=== PATIENT | female | born 1970 | race Caucasian/White ===

== ENCOUNTER → 2016-09-19 | Outpatient (CLI) | payer MEDICARE, MEDICAID | LOC: M LAB 10:37 | PROVIDERS: ATTEND Nurse Practitioner Family | DX: C95.91 Leukemia, unspecified, in remission (principal); F41.8 Other specified anxiety disorders; Z13.89 Encounter for screening for other disorder ==

== ENCOUNTER → 2016-10-11 | Outpatient (REF) | payer MEDICARE, MEDICAID | LOC: M LAB REF 17:25 | PROVIDERS: ATTEND Nurse Practitioner Family | DX: Z12.4 Encounter for screening for malignant neoplasm of cervix (principal); N89.8 Other specified noninflammatory disorders of vagina | CPT/HCPCS: 87491; 87591; G0123 ==

== ENCOUNTER → 2017-06-30 | Outpatient (REF) | payer MEDICARE, MEDICAID ==
[2017-06-30 20:38] LABS: ESTIMATED AVERAGE GLUCOSE 108 MG/DL (60-110); HEMOGLOBIN A1c 5.4 %
[2017-06-30 21:10] LABS: CHOLESTEROL LEVEL 210 MG/DL (<200); CHOLESTEROL RISK RATIO 2.957 (<5); HDL CHOLESTEROL 71 MG/DL (>40); NON-HDL-C 139 MG/DL; TRIGLYCERIDES LEVEL 175 MG/DL (<150)
[2017-07-03 12:12] LABS: HIV 1&2 SCREEN CENTAUR NEGATIVE (NEGATIVE)
[2017-07-03 12:12] LABS: HEPATITIS C VIRUS ABY INDEX 0.1 INDEX (<0.8)
== END ==
LOC: M SFHCPLAZ 15:04
DX: Z11.3 Encounter for screening for infections with a predominantly sexual mode of transmission (principal); Z13.1 Encounter for screening for diabetes mellitus; Z13.220 Encounter for screening for lipoid disorders; F17.200 Nicotine dependence, unspecified, uncomplicated; J01.01 Acute recurrent maxillary sinusitis; M54.5 Low back pain; G89.29 Other chronic pain; Z23 Encounter for immunization; Z79.899 Other long term (current) drug therapy
CPT/HCPCS: 83036

== ENCOUNTER 2017-10-26 13:20 | Emergency (ER) | payer MEDICARE, MEDICAID ==
[2017-10-26] MEDS: ACETAMINOPHEN 325 MG TAB PO (17:15)
== END 2017-10-26 18:11 | disposition home or self-care (01) ==
LOC: M ED 13:20
DX: S00.93XA Contusion of unspecified part of head, initial encounter (principal); T20.05XA Burn of unspecified degree of scalp [any part], initial encounter; X97.XXXA Assault by smoke, fire and flames, initial encounter; W19.XXXA Unspecified fall, initial encounter; Y92.480 Sidewalk as the place of occurrence of the external cause; Y93.9 Activity, unspecified; Y99.9 Unspecified external cause status; F17.200 Nicotine dependence, unspecified, uncomplicated
CPT/HCPCS: 70450

== ENCOUNTER 2018-04-04 17:06 | Emergency (ER) | payer MEDICARE, MEDICAID | END 2018-04-04 18:22 | disposition left against medical advice (07) | LOC: M ED 17:06 | DX: F10.129 Alcohol abuse with intoxication, unspecified (principal); Z53.21 Procedure and treatment not carried out due to patient leaving prior to being seen by health care provider ==

== ENCOUNTER 2022-02-11 20:43 | Emergency (ER) | payer MEDICARE, MEDICAID ==
[~2022-02-11] VITALS: Ht 157.5 cm; Wt 55.9 kg
[~2022-02-11 20:43] MED LIST: BACT2CRE TOP
[2022-02-11] MEDS ORDERED: BOOSTRIX/ADACEL VACCINE (DIPHTH/PERTUSS/ACELL/TETANUS) 0.5ML SYR IM ONE (21:05)
[2022-02-11 22:06] LABS: BASO # 0.1 10^3/uL (0.0-0.2); BASO % 0.8 % (0.0-1.0); EOS # 0.2 10^3/uL (0.0-0.5); EOS % 2.2 % (0.0-3.0); HEMATOCRIT 40.8 % (36.0-47.0); HEMOGLOBIN 14.9 g/dl (12.0-15.5); MEAN CORPUSCULAR HEMOGLOBIN 34.7 pg (27.0-33.0); MEAN CORPUSCULAR HGB CONC 36.5 g/dl (32.0-36.5); MEAN CORPUSCULAR VOLUME 94.9 fl (80.0-96.0); MONO # 0.5 10^3/uL (0.0-0.8); MONO % 5.4 % (2.0-8.0); NEUTROPHILS % 71.2 % (36.0-66.0); PLATELET COUNT, AUTOMATED 256 10^3/uL (150-450); WHITE BLOOD COUNT 9.8 10^3/uL (4.0-10.0)
[2022-02-11 22:44] LABS: AMPHETAMINES LEVEL URINE NEGATIVE (NEGATIVE); BARBITURATES URINE NEGATIVE (NEGATIVE); BENZODIAZEPINES URINE NEGATIVE (NEGATIVE); CANNABINOIDS URINE NEGATIVE (NEGATIVE); COCAINE METABOLITE URINE NEGATIVE (NEGATIVE); METHADONE URINE NEGATIVE (NEGATIVE); OPIATES URINE NEGATIVE (NEGATIVE); PHENCYCLIDINE URINE NEGATIVE (NEGATIVE)
[2022-02-11 22:52] LABS: ACETAMINOPHEN LEVEL < 2.0 UG/ML (10.0-30.0); ALBUMIN 4.1 GM/DL (3.2-5.2); ALT/SGPT 26 U/L (12-78); BILIRUBIN,DIRECT 0.3 MG/DL (0.0-0.2); BILIRUBIN,TOTAL 0.3 MG/DL (0.2-1.0); BLOOD UREA NITROGEN 6 MG/DL (7-18); CALCIUM LEVEL 8.5 MG/DL (8.5-10.1); CARBON DIOXIDE LEVEL 24 MEQ/L (21-32); CHLORIDE LEVEL 98 MEQ/L (98-107); CREATININE FOR GFR 0.52 MG/DL (0.55-1.30); ETHYL ALCOHOL (ETHANOL) 0.182 % (0.000-0.010); GLOMERULAR FILTRATION RATE > 60.0 (>51); GLUCOSE, FASTING 84 MG/DL (70-100); POTASSIUM SERUM 3.8 MEQ/L (3.5-5.1); SALICYLATE LEVEL 3.8 MG/DL (5.0-30.0); SODIUM LEVEL 131 MEQ/L (136-145); TOTAL PROTEIN 6.8 GM/DL (6.4-8.2)
[2022-02-11 23:56] VITALS: BP 148/84
== END 2022-02-11 23:57 | disposition home or self-care (01) ==
LOC: EDBD 20:43 → M ED 20:43
DX: S00.83XA Contusion of other part of head, initial encounter (principal); S50.312A Abrasion of left elbow, initial encounter; W18.39XA Other fall on same level, initial encounter; Y92.410 Unspecified street and highway as the place of occurrence of the external cause; F10.10 Alcohol abuse, uncomplicated; Y90.0 Blood alcohol level of less than 20 mg/100 ml; J44.9 Chronic obstructive pulmonary disease, unspecified

== ENCOUNTER → 2023-07-18 | Outpatient (REF) | payer MEDICARE, MEDICAID ==
[2023-07-18 19:42] LABS: HEMATOCRIT 45.1 % (36.0-47.0); HEMOGLOBIN 15.5 g/dl (12.0-15.5); MEAN CORPUSCULAR HEMOGLOBIN 32.8 pg (27.0-33.0); MEAN CORPUSCULAR HGB CONC 34.4 g/dl (32.0-36.5); MEAN CORPUSCULAR VOLUME 95.3 fl (80.0-96.0); PLATELET COUNT, AUTOMATED 287 10^3/uL (150-450); RED BLOOD COUNT 4.73 10^6/uL (4.00-5.40); WHITE BLOOD COUNT 7.3 10^3/uL (4.0-10.0)
[2023-07-18 20:17] LABS: ALBUMIN 4.2 G/DL (3.2-5.2); ALKALINE PHOSPHATASE 84 U/L (46-116); ALT/SGPT 20 U/L (7.0-40); AST/SGOT 14 U/L (<34); BILIRUBIN,TOTAL 0.5 MG/DL (0.3-1.2); BLOOD UREA NITROGEN 8 MG/DL (9-23); CARBON DIOXIDE LEVEL 27 MMOL/L (20-31); CHLORIDE LEVEL 102 MMOL/L (98-107); CHOLESTEROL LEVEL 230 MG/DL (<200); CHOLESTEROL RISK RATIO 4.33 (<5); CREATININE FOR GFR 0.62 MG/DL (0.55-1.30); GLOMERULAR FILTRATION RATE > 60.0 (>51); GLUCOSE, FASTING 80 MG/DL (60-100); HDL CHOLESTEROL 53.1 MG/DL (>40); LDL CHOLESTEROL 130.1 MG/DL (<100); NON-HDL-C 176.9 MG/DL; POTASSIUM SERUM 4.4 MMOL/L (3.5-5.1); SODIUM LEVEL 136 MMOL/L (136-145); TOTAL PROTEIN 7.1 G/DL (5.7-8.2); TRIGLYCERIDES LEVEL 234 MG/DL (<150)
[2023-07-18 20:20] LABS: THYROID STIMULATING HORMONE 3.617 uIU/ML (0.55-4.78)
[2023-07-18 20:46] LABS: HIV 1&2 SCREEN NEGATIVE (NEGATIVE)
[2023-07-18 20:53] LABS: HEPATITIS C VIRUS ABY INDEX < 0.02 INDEX (<0.8)
== END ==
LOC: M LAB REF 17:43
PROVIDERS: ATTEND Physician Assistant
DX: Z11.4 Encounter for screening for human immunodeficiency virus [HIV] (principal); Z11.59 Encounter for screening for other viral diseases; F10.20 Alcohol dependence, uncomplicated; E55.9 Vitamin D deficiency, unspecified; E78.5 Hyperlipidemia, unspecified

== ENCOUNTER 2023-09-15 10:45 | Emergency (ER) | payer OTHER, MEDICAID ==
[~2023-09-15] VITALS: Ht 157.5 cm; Wt 64.7 kg
[2023-09-15 10:46] VITALS: BP 169/79; TEMP 97.9; O2SAT 97
[2023-09-15] MEDS ORDERED: OSTE1TAB2 PO (11:04)
[2023-09-15] MEDS ORDERED: NAPR-837 PO (13:52)
[2023-09-15] MEDS: NAPROXEN 250 MG TAB PO ONE (14:00)
== END 2023-09-15 14:06 | disposition home or self-care (01) ==
LOC: M ED 10:45
DX: S40.012A Contusion of left shoulder, initial encounter (principal); W19.XXXA Unspecified fall, initial encounter; Y92.009 Unspecified place in unspecified non-institutional (private) residence as the place of occurrence of the external cause; Y93.9 Activity, unspecified; Y99.9 Unspecified external cause status; I51.9 Heart disease, unspecified